=== PATIENT | male | born 1940 | race Caucasian/White ===

== ENCOUNTER 2016-11-13 09:36 | Inpatient (IN) | payer OTHER ==
[~2016-11-13] VITALS: Ht 190.5 cm; Wt 67.9 kg
[~2016-11-13 09:36] MED LIST: ATIVAN1 MG PO; CITALOPRAM HBR20 MG PO; CLONAZEPAM0.5 MG PO; CYPROHEPTADINE H4 MG PO; ESCITALOPRAM OX20 MG PO; HYDROCHLOROTHIA25 MG PO; HYDROCODON-ACE1 EAC7 PO; LEVSIN-SL0.125 MG SL; LISINOPRIL40 MG PO; LOPRESSOR100 M1 PO; METOPROLOL TART50 MG PO; PRAVACHOL10 MG PO; PRAVACHOL20 MG PO; PRAZOSIN HCL1 MG PO; THERAGRAN1 TABLET PO; XIFAXAN550 MG PO
[2016-11-13 10:11] LABS: MCH 33.3 PG (29.0-34.0); MCHC 34.5 G/DL (30.0-36.0); MCV 96.3 FL (86-99); MEAN PLAT.VOLUME 9.9 uM^3 (9.0-12.4); PLATELET COUNT 174 K/uL (156-360); RBC DIS.WIDTH-CV 12.2 % (11.8-14.6); RBC DIS.WIDTH-SD 43.3 % (39-53); RED BLOOD COUNT 4.57 M/uL (4.00-5.50); WHITE BLOOD COUNT 13.1 K/uL (4.1-10.2)
[2016-11-13 10:24] LABS: CHLORIDE 97 mEq/L (99-109); POTASSIUM 3.4 mEq/L (3.7-5.4); SODIUM 135 mEq/L (136-147)
[2016-11-13 10:26] LABS: GLUCOSE 139 mg/dL (70-99)
[2016-11-13 10:27] LABS: ANION GAP 16 MEQ/L (2-14)
[2016-11-13 10:29] LABS: GFR ESTIMATE (CALCULATED) > 59 mL/min/
[2016-11-13 10:30] LABS: UREA NITROGEN (BUN) 36 mg/dL (9-23)
[2016-11-13 11:03] LABS: EOSINOPHIL (%) 0 % (0-5); IMMATURE GRANULOCYTE (%) 0.5 % (0.0-0.7); IMMATURE GRANULOCYTE COUNT 0.1 K/uL; INSTRUMENT ABS NEUTROPHIL CT 11.4 K/uL; LYMPHOCYTE COUNT 0.2 K/uL (1.0-2.8); MONOCYTE (%) 10.6 % (3-12); MONOCYTE COUNT 1.4 K/uL (0-0.8); NEUTROPHIL COUNT 11.4 K/uL (1.8-6.4)
[2016-11-13 11:46] LABS: ADD MIUA? YES; BILIRUBIN NEGATIVE; BLOOD MODERATE; COLOR AMBER ((YELLOW)); GLUCOSE (STRIP) NEGATIVE; KETONES 5; LEUKOCYTES LARGE; NITRITE NEGATIVE; PROTEIN (STRIP) 100; SPECIFIC GRAVITY 1.016 (1.000-1.030); UROBILINOGEN 0.2 MG/DL (0.2-1.0)
[2016-11-13 12:00] LABS: WHITE BLOOD CELLS TNTC /HPF (0-5)
[2016-11-13 12:01] LABS: EPITHELIAL CELLS NONE SEEN /HPF; UCUL ADDED? YES
[2016-11-13] MEDS ORDERED: LOPRESSOR25 MG PO (12:53)
[2016-11-13] MEDS ORDERED: PRAVACHOL20 MG PO (12:53)
[2016-11-13] MEDS ORDERED: XANAX0.25 MG PO (12:54)
[2016-11-13] MEDS ORDERED: SINEMET 25-1001 EACH PO (12:55)
[2016-11-13] MEDS ORDERED: AMLODIPINE BESYL5 MG PO (12:55)
[2016-11-13 17:32] VITALS: BP 113/63
[2016-11-13 20:10] VITALS: BP 139/94
[2016-11-13 23:52] VITALS: BP 126/77
[2016-11-14] VITALS (9 sets, daily range): BP systolic 125–152; BP diastolic 80–97
[2016-11-14 03:51] LABS: HEMATOCRIT 38.8 % (38.0-50.0); MCH 34.1 PG (29.0-34.0); MCHC 35.1 G/DL (30.0-36.0); MCV 97.2 FL (86-99); MEAN PLAT.VOLUME 9.9 uM^3 (9.0-12.4); PLATELET COUNT 128 K/uL (156-360); RBC DIS.WIDTH-SD 43.1 % (39-53); RED BLOOD COUNT 3.99 M/uL (4.00-5.50); WHITE BLOOD COUNT 9.3 K/uL (4.1-10.2)
[2016-11-14 04:02] LABS: INTER. NORMALIZED RATIO 1.2; PROTHROMBIN TIME 11.9 (9.2-11.2); PTT 41.1 (25-32)
[2016-11-14 04:05] LABS: CHLORIDE 104 mEq/L (99-109); POTASSIUM 3.2 mEq/L (3.7-5.4); SODIUM 135 mEq/L (136-147)
[2016-11-14 04:07] LABS: GLUCOSE 106 mg/dL (70-99)
[2016-11-14 04:09] LABS: ANION GAP 8 MEQ/L (2-14); TOTAL BILIRUBIN 1.2 mg/dL (0.0-1.0)
[2016-11-14 04:11] LABS: ALKALINE PHOSPHATASE 47 IU/L (3-129); GFR ESTIMATE (CALCULATED) > 59 mL/min/
[2016-11-14 04:12] LABS: TROP-I INTERPRETATION NEGATIVE; TROPONIN-I 0.07 ng/mL (0.0-0.30); UREA NITROGEN (BUN) 24 mg/dL (9-23)
[2016-11-14 06:29] LABS: HEMATOCRIT 37.8 % (38.0-50.0); MCH 33.2 PG (29.0-34.0); MCHC 33.9 G/DL (30.0-36.0); MCV 98.2 FL (86-99); MEAN PLAT.VOLUME 10.1 uM^3 (9.0-12.4); PLATELET COUNT 137 K/uL (156-360); RBC DIS.WIDTH-CV 12.2 % (11.8-14.6); RBC DIS.WIDTH-SD 43.9 % (39-53); RED BLOOD COUNT 3.85 M/uL (4.00-5.50); WHITE BLOOD COUNT 8.9 K/uL (4.1-10.2)
[2016-11-14 06:54] LABS: ALKALINE PHOSPHATASE 42 IU/L (3-129); ANION GAP 8 MEQ/L (2-14); CHLORIDE 103 MEQ/L (99-109); GFR ESTIMATE (CALCULATED) > 59 mL/min/; GLUCOSE 95 mg/dL (70-99); POTASSIUM 3.3 MEQ/L (3.7-5.4); SAMPLE HEMOLYSIS CHECK 0; SAMPLE ICTERIC CHECK 0; SAMPLE LIPEMIA CHECK 0; SODIUM 136 MEQ/L (136-147); UREA NITROGEN (BUN) 21 mg/dL (9-23)
[2016-11-14 07:57] LABS: EOSINOPHIL (%) 0 % (0-5); IMMATURE GRANULOCYTE (%) 0.2 % (0.0-0.7); INSTRUMENT ABS NEUTROPHIL CT 7.7 K/uL; LYMPHOCYTE COUNT 0.3 K/uL (1.0-2.8); MONOCYTE (%) 9.4 % (3-12); MONOCYTE COUNT 0.8 K/uL (0-0.8); NEUTROPHIL (%) 86.5 % (45-76); NEUTROPHIL COUNT 7.7 K/uL (1.8-6.4); PLAT.SUFFICIENCY ADEQUATE
[2016-11-14 11:20] LABS: TROP-I INTERPRETATION NEGATIVE; TROPONIN-I 0.06 ng/mL (0.0-0.30)
[2016-11-14 16:45] LABS: TROP-I INTERPRETATION NEGATIVE; TROPONIN-I 0.05 ng/mL (0.0-0.30)
[2016-11-15 00:02] VITALS: BP 140/83
[2016-11-15 04:23] VITALS: BP 133/89
[2016-11-15 06:28] LABS: HEMATOCRIT 34.2 % (38.0-50.0); MCH 34.3 PG (29.0-34.0); MCHC 34.5 G/DL (30.0-36.0); MCV 99.4 FL (86-99); MEAN PLAT.VOLUME 10.2 uM^3 (9.0-12.4); PLATELET COUNT 133 K/uL (156-360); RBC DIS.WIDTH-CV 12.2 % (11.8-14.6); RBC DIS.WIDTH-SD 44.1 % (39-53); RED BLOOD COUNT 3.44 M/uL (4.00-5.50); WHITE BLOOD COUNT 6.6 K/uL (4.1-10.2)
[2016-11-15 06:53] LABS: ANION GAP 9 MEQ/L (2-14); CHLORIDE 105 MEQ/L (99-109); GFR ESTIMATE (CALCULATED) > 59 mL/min/; GLUCOSE 89 mg/dL (70-99); POTASSIUM 3.7 MEQ/L (3.7-5.4); SAMPLE HEMOLYSIS CHECK 0; SAMPLE ICTERIC CHECK 0; SAMPLE LIPEMIA CHECK 0; SODIUM 137 MEQ/L (136-147); UREA NITROGEN (BUN) 13 mg/dL (9-23)
[2016-11-15 08:00] VITALS: BP 146/91
[2016-11-15 11:00] VITALS: BP 132/84
[2016-11-15 15:53] VITALS: BP 138/73
[2016-11-15 19:19] VITALS: BP 148/81
[2016-11-16] VITALS (7 sets, daily range): BP systolic 119–183; BP diastolic 81–88
[2016-11-17 02:27] VITALS: BP 130/76
[2016-11-17 07:25] VITALS: BP 134/93
[2016-11-17 08:01] LABS: ANION GAP 9 MEQ/L (2-14); CHLORIDE 102 MEQ/L (99-109); GFR ESTIMATE (CALCULATED) > 59 mL/min/; GLUCOSE 83 mg/dL (70-99); POTASSIUM 4.2 MEQ/L (3.7-5.4); SAMPLE HEMOLYSIS CHECK 0; SAMPLE ICTERIC CHECK 0; SAMPLE LIPEMIA CHECK 0; SODIUM 140 MEQ/L (136-147); UREA NITROGEN (BUN) 8 mg/dL (9-23)
[2016-11-17 10:59] VITALS: BP 121/74
[2016-11-17 16:55] VITALS: BP 130/85
[2016-11-17 19:08] VITALS: BP 119/85
[2016-11-17 22:45] VITALS: BP 125/77
[2016-11-18 08:13] VITALS: BP 130/89
[2016-11-18 08:16] LABS: HEMATOCRIT 37.2 % (38.0-50.0); MCH 32.9 PG (29.0-34.0); MCHC 33.3 G/DL (30.0-36.0); MCV 98.7 FL (86-99); MEAN PLAT.VOLUME 9.9 uM^3 (9.0-12.4); RBC DIS.WIDTH-SD 43.8 % (39-53); RED BLOOD COUNT 3.77 M/uL (4.00-5.50); WHITE BLOOD COUNT 5.7 K/uL (4.1-10.2)
[2016-11-18 08:17] LABS: PLATELET COUNT 196 K/uL (156-360)
[2016-11-18 09:02] LABS: ANION GAP 7 MEQ/L (2-14); CHLORIDE 101 MEQ/L (99-109); GFR ESTIMATE (CALCULATED) > 59 mL/min/; GLUCOSE 78 mg/dL (70-99); POTASSIUM 3.4 MEQ/L (3.7-5.4); SAMPLE HEMOLYSIS CHECK 0; SAMPLE ICTERIC CHECK 0; SAMPLE LIPEMIA CHECK 0; SODIUM 138 MEQ/L (136-147); UREA NITROGEN (BUN) 7 mg/dL (9-23)
[2016-11-18] MEDS ORDERED: BACTRIM,SEPT1 TABLET PO (10:33)
[2016-11-18] MEDS ORDERED: ASPIR-LOW81 MG PO (10:33)
== END 2016-11-18 13:32 | DRG 871 ==
LOC: EME 09:36 → EDOF 12:21 → 5EAST 12:21
PROVIDERS: Hospitalist; Internal Medicine
DX: A41.51 Sepsis due to Escherichia coli [E. coli] (principal); I25.10 Atherosclerotic heart disease of native coronary artery without angina pectoris; I11.0 Hypertensive heart disease with heart failure; I50.42 Chronic combined systolic (congestive) and diastolic (congestive) heart failure; G20 Parkinson's disease; J18.9 Pneumonia, unspecified organism; I27.2 Other secondary pulmonary hypertension; I48.0 Paroxysmal atrial fibrillation; E87.6 Hypokalemia; E78.5 Hyperlipidemia, unspecified; F02.80 Dementia in other diseases classified elsewhere, unspecified severity, without behavioral disturbance, psychotic disturbance, mood disturbance, and anxiety; F01.50 Vascular dementia, unspecified severity, without behavioral disturbance, psychotic disturbance, mood disturbance, and anxiety; Z86.73 Personal history of transient ischemic attack (TIA), and cerebral infarction without residual deficits; N30.00 Acute cystitis without hematuria; G70.9 Myoneural disorder, unspecified; F41.9 Anxiety disorder, unspecified; Z99.3 Dependence on wheelchair; Z91.81 History of falling; Z87.891 Personal history of nicotine dependence; Z95.5 Presence of coronary angioplasty implant and graft
CPT/HCPCS: 71010; 80048; 80053; 81003; 83605; 84443; 84484; 85025; 85027; 85610; 85730; 87040; 87077; 87086; 87186; 92610 GN; 93005; 93306; 97530 GO; 99281; 99285; J0692; J1650; J1956; J2405; J3480; J7050

== ENCOUNTER 2018-01-15 19:46 | Emergency (ER) | payer OTHER ==
[~2018-01-15] VITALS: Ht 193 cm; Wt 75.0 kg
[~2018-01-15 19:46] MED LIST changes: +AMLODIPINE BESYL5 MG PO; +ASPIR-LOW81 MG PO; +BACTRIM,SEPT1 TABLET PO; +LOPRESSOR25 MG PO; +SINEMET 25-1001 EACH PO; +XANAX0.25 MG PO
[2018-01-15 20:25] LABS: HEMOGLOBIN 13.9 G/DL (12.5-16.6); MCH 34.9 PG (29.0-34.0); MCHC 35.6 G/DL (30.0-36.0); PLATELET COUNT 200 K/uL (156-360); RBC DIS.WIDTH-SD 46.5 % (39-53); RED BLOOD COUNT 3.98 M/uL (4.00-5.50); WHITE BLOOD COUNT 14.4 K/uL (4.1-10.2)
[2018-01-15 20:35] LABS: CHLORIDE 101 mEq/L (99-109); POTASSIUM 3.9 mEq/L (3.7-5.4); SODIUM 137 mEq/L (136-147)
[2018-01-15 20:36] LABS: GLUCOSE 120 mg/dL (70-99)
[2018-01-15 20:40] LABS: CREATININE 1.2 mg/dL (0.6-1.3); GFR ESTIMATE (CALCULATED) > 59 mL/min/ (58.99-99999)
[2018-01-15 20:41] LABS: UREA NITROGEN (BUN) 13 mg/dL (9-23)
[2018-01-15 22:00] LABS: APPEARANCE TURBID ((CLEAR)); BILIRUBIN NEGATIVE; BLOOD SMALL; COLOR YELLOW ((YELLOW)); GLUCOSE (STRIP) NEGATIVE; KETONES 20; LEUKOCYTES LARGE; NITRITE NEGATIVE; PROTEIN (STRIP) 100; SPECIFIC GRAVITY 1.018 (1.000-1.030)
[2018-01-15 22:13] LABS: RED BLOOD CELLS TNTC /HPF (0-5); UCUL ADDED? YES
[2018-01-15] MEDS ORDERED: CIPRO500 MG PO (22:44)
[2018-01-15 22:58] VITALS: BP 122/76
== END 2018-01-15 23:10 | disposition home or self-care (01) ==
LOC: EME → EDBD 19:46 → EME 19:46
PROVIDERS: Emergency Medicine
DX: N39.0 Urinary tract infection, site not specified (principal); E86.0 Dehydration; W18.30XA Fall on same level, unspecified, initial encounter; G20 Parkinson's disease; I10 Essential (primary) hypertension; F41.9 Anxiety disorder, unspecified; Z87.440 Personal history of urinary (tract) infections; Z86.73 Personal history of transient ischemic attack (TIA), and cerebral infarction without residual deficits; Z87.891 Personal history of nicotine dependence; Z88.1 Allergy status to other antibiotic agents
CPT/HCPCS: 70450; 80048; 81003; 85027; 87086; 93005; 99281; 99285; J7030